=== PATIENT | female | born 1985 ===

== ENCOUNTER 2024-08-30 09:10 | Day surgery (SDC) | payer OTHER ==
[2024-08-19 14:34] LABS: ALBUMIN 3.7 gm/dL (3.4-5.0); BILIRUBIN TOTAL 0.37 mg/dL (0.3-1.2); CALCIUM 8.6 mg/dL (8.5-10.1); CREATININE SERUM 0.72 mg/dL (0.55-1.02); GFR 89.71; GLOBULINA 3.6 G/DL (2.4-3.5); POTASSIUM 3.84 mEq/L (3.5-5.1); TOTAL PROTEIN 7.3 gm/dL (6.4-8.2)
[2024-08-19 15:29] LABS: INR 1.05; PARTIAL THROMBOPLASTIN TIME 30.8 SECONDS (22.0-34.0); PROTHROMBIN TIME 11.4 SECONDS (9.0-11.5)
[~2024-08-30 09:10] MED LIST: FAMOTIDINE40 MG; HIERRO; MAGNESIUM250 M2; SYNTHROID150 MCG; VITAMIN D
[2024-08-30] MEDS ORDERED: POVIDONE-IODINE 118 ML BOTT TOP ONE (17:30)
[2024-08-30] MEDS ORDERED: MORPHINE SULFATE 4 MG/ML VIAL IV ONE (18:40)
== END 2024-08-30 20:20 | disposition home or self-care (01) ==
LOC: CIR.AMB 09:10
PROVIDERS: ATTEND Obstetrics & Gynecology
DX: N84.0 Polyp of corpus uteri (principal); N93.8 Other specified abnormal uterine and vaginal bleeding